=== PATIENT | male | born 1990 | race African-American/Black ===

== ENCOUNTER 2018-03-01 14:11 | Emergency (ER) | payer MEDICAID ==
[~2018-03-01] VITALS: Ht 175.3 cm; Wt 77.3 kg
[2018-03-01] MEDS ORDERED: KETOROLAC 30 MG/1 ML IM ONE (14:30)
[2018-03-01] MEDS ORDERED: KETOROLAC 30 MG/1 ML ONE (14:37)
[2018-03-01 15:01] VITALS: BP 110/73
== END 2018-03-01 15:32 | disposition home or self-care (01) ==
LOC: ED 15:20
DX: S20.219A Contusion of unspecified front wall of thorax, initial encounter (principal); W01.0XXA Fall on same level from slipping, tripping and stumbling without subsequent striking against object, initial encounter; Y93.02 Activity, running; Y92.410 Unspecified street and highway as the place of occurrence of the external cause; Y99.8 Other external cause status
CPT/HCPCS: 71046; 93005; 99284